=== PATIENT | male | born 1955 | race Caucasian/White ===

== ENCOUNTER 2020-05-15 21:25 | Emergency (ER) | payer SELFPAY ==
[~2020-05-15 21:25] MED LIST: Iopamidol 370 76% 100 ML VIAL ONE
[2020-05-15 21:53] LABS: #Monocytes 0.6 thou/uL (0.11-0.59); #Neutrophils 6.2 thou/uL (1.40-6.50); %Basophils 0.6 % (0.0-1.0); %Eosinophils 0.2 % (0.0-10.0); %Lymphocytes 12.6 % (21.0-51.0); %Monocytes 7.9 % (0.0-10.0); %Neutrophils 78.8 % (42.0-75.0); Hemoglobin 16.9 g/dL (14.0-18.0); Mean Corpuscular HGB CONC 33.2 g/dL (32.0-36.0); Mean Corpuscular Hemoglobin 30.9 pg (27.0-31.0); Mean Corpuscular Volume 93.1 fL (78.0-98.0); Mean Platelet Volume 6.8 fL (7.4-10.4); Platelet Count 177 thou/uL (130-400); RBC Distribution Width 12.4 % (11.5-14.5); Red Blood Cell (RBC) Count 5.46 mill/uL (4.70-6.10); White Blood Cell (WBC) Count 7.9 thou/uL (4.8-10.8)
[2020-05-15] MEDS ORDERED: Ondansetron PF 4 MG/2 ML Vial ONE (22:01)
[2020-05-15 22:08] LABS: ALT (SGPT) 43 U/L (8-55); AST (SGOT) 43 U/L (5-34); Albumin 4.2 g/dL (3.4-4.8); Alkaline Phosphatase 78 U/L (40-110); Anion Gap 15 mmol/L (10-20); BUN (Urea Nitrogen) 11 mg/dL (8.4-25.7); Bilirubin, Total 1.1 mg/dL (0.2-1.2); Calc. Creatinine Clearance 0 mL/min (70-130); Calcium 8.8 mg/dL (7.8-10.44); Carbon Dioxide 24 mmol/L (23-31); Chloride 102 mmol/L (98-107); Glucose 99 mg/dL (80-115); Lipase 12 U/L (8-78); Potassium 3.7 mmol/L (3.5-5.1); Protein, Total 7.2 g/dL (5.8-8.1); Sodium 137 mmol/L (136-145)
[2020-05-15 22:32] LABS: Bilirubin Negative (Negative); Blood, Urine Negative (Negative); Clarity Clear (Clear); Glucose, Urine (Dipstick) Negative (Negative); Ketone, Urine 80 mg/dL (Negative); Leukocyte Small (Negative); Nitrite Negative (Negative); Protein, Urine (Dipstick) Trace mg/dL (Neg-Trace); pH, Urine 8.5 (5.0-9.0)
[2020-05-15 22:48] LABS: Bacteria/HPF Rare-Few HPF (None Seen); RBC/HPF None Seen HPF (0-3); WBC/HPF 0-3 HPF (0-3)
[2020-05-15] MEDS ORDERED: Acetaminophen 500 MG TAB ONE (23:01)
[2020-05-16 20:59] LABS: SARS-CoV-2 PCR by NAA Not Detected (NotDetected)
== END 2020-05-15 23:35 | disposition home or self-care (01) ==
LOC: BURERS 21:25
DX: B34.9 Viral infection, unspecified (principal); R11.0 Nausea; R14.0 Abdominal distension (gaseous); R10.817 Generalized abdominal tenderness; Z20.822 Contact with and (suspected) exposure to COVID-19; I10 Essential (primary) hypertension; M19.90 Unspecified osteoarthritis, unspecified site; Z79.899 Other long term (current) drug therapy; Z79.01 Long term (current) use of anticoagulants
CPT/HCPCS: 71045; 74177; 80053; 81003; 81015; 82150; 83690; 84484; 85025; 87635; 87804; 93005; 96374; J2405; Q9967; U0003; U0005

== ENCOUNTER 2020-05-19 19:26 | Emergency (ER) | payer SELFPAY ==
[2020-05-19] MEDS ORDERED: Lidocaine 1% PF 5 ML VIAL ONE (20:54)
[2020-05-19] MEDS ORDERED: cefTRIAXone\\ROCEPHIN 1 GM VIAL ONE (20:54)
[2020-05-19] MEDS ORDERED: Azithromycin 250 MG TAB ONE (21:02)
[2020-05-19] MEDS ORDERED: Dexamethasone 4 MG TAB ONE (21:02)
== END 2020-05-19 21:10 | disposition home or self-care (01) ==
LOC: BURERS 19:26
DX: J18.9 Pneumonia, unspecified organism (principal); I10 Essential (primary) hypertension; Z79.899 Other long term (current) drug therapy
CPT/HCPCS: 71046; 87804; 96372; J0696; J8540

== ENCOUNTER 2021-03-02 16:28 | Emergency (ER) | payer MEDICARE ==
[2021-03-02] MEDS ORDERED: Ondansetron ODT 4 MG TAB ONE (17:17)
== END 2021-03-02 17:58 | disposition home or self-care (01) ==
LOC: BURERS 16:28
DX: R11.0 Nausea (principal); T50.Z95A Adverse effect of other vaccines and biological substances, initial encounter; I10 Essential (primary) hypertension; M19.90 Unspecified osteoarthritis, unspecified site
CPT/HCPCS: 71045; 87804; Q0162

== ENCOUNTER 2024-09-15 20:26 | Emergency (ER) | payer MEDICARE | END 2024-09-15 21:00 | disposition home or self-care (01) | LOC: BURERS 20:26 | DX: R21 Rash and other nonspecific skin eruption (principal); I10 Essential (primary) hypertension | CPT/HCPCS: 99282 ==